=== PATIENT | female | born 1995 | race Caucasian/White ===

== ENCOUNTER 2021-09-29 17:40 | Emergency (ER) | payer OTHER ==
[~2021-09-29] VITALS: Ht 160 cm; Wt 50.0 kg
[2021-09-29 17:47] VITALS: BP 106/73
[2021-09-29] MEDS ORDERED: KEPPSOL GT (17:51)
[2021-09-29] MEDS ORDERED: LEVETIRACETAM 500MG TABLET PO ONE (18:45)
== END 2021-09-29 19:10 ==
LOC: ER 17:40
DX: R56.9 Unspecified convulsions (principal)
CPT/HCPCS: 99283